=== PATIENT | female | born 1975 | race African-American/Black ===

== ENCOUNTER 2016-11-28 14:02 | Emergency (ER) | payer BC ==
[~2016-11-28] VITALS: Ht 154.9 cm; Wt 96.3 kg
[~2016-11-28 14:02] MED LIST: AMOXICILLIN500 MG PO; BENTYL20 MG PO; FLUTICASONE PRO16 GM BOTH NARES; IBUPROFEN800 MG PO; MOBIC15 MG PO; NAPROXEN500 MG PO; OMEPRAZOLE40 M1 PO; ZOFRAN ODT4 MG PO
[2016-11-28 14:29] LABS: HEMATOCRIT 40.2 % (36.0-46.0); MCHC 32.8 G/DL (30.0-36.0); MCV 85.4 FL (83-99); MEAN PLAT.VOLUME 8.7 uM^3 (9.5-12.4); PLATELET COUNT 307 K/uL (156-360); RBC DIS.WIDTH-CV 16.3 % (11.8-14.6); RBC DIS.WIDTH-SD 50.8 % (39-53); RED BLOOD COUNT 4.71 M/uL (3.80-5.20); WHITE BLOOD COUNT 8.7 K/uL (4.1-10.2)
[2016-11-28 14:39] LABS: CHLORIDE 110 mEq/L (99-109); POTASSIUM 3.8 mEq/L (3.7-5.4); SODIUM 144 mEq/L (136-147)
[2016-11-28 14:41] LABS: GLUCOSE 93 mg/dL (70-99)
[2016-11-28 14:42] LABS: ANION GAP 8 MEQ/L (2-14)
[2016-11-28 14:44] LABS: GFR ESTIMATE (CALCULATED) > 59 mL/min/
[2016-11-28 14:45] LABS: UREA NITROGEN (BUN) 9 mg/dL (9-23)
[2016-11-28 14:51] LABS: TROP-I INTERPRETATION NEGATIVE; TROPONIN-I < 0.01 ng/mL (0.0-0.30)
[2016-11-28 17:45] LABS: TROP-I INTERPRETATION NEGATIVE; TROPONIN-I < 0.01 ng/mL (0.0-0.30)
[2016-11-28 18:30] VITALS: BP 136/83
== END 2016-11-28 18:31 | disposition home or self-care (01) ==
LOC: EME 14:02
PROVIDERS: Physician Assistant
DX: R07.9 Chest pain, unspecified (principal); I10 Essential (primary) hypertension
CPT/HCPCS: 71020; 80048; 84484; 85027; 93005; 99281; 99284; Q0177

== ENCOUNTER 2018-05-19 23:13 | Inpatient (IN) | payer SELFPAY ==
[~2018-05-19] VITALS: Ht 157.5 cm; Wt 97.4 kg
[2018-05-19 23:29] LABS: HEMATOCRIT 27.7 % (36.0-46.0); HEMOGLOBIN 9.2 G/DL (11.9-15.5); MCH 29.7 PG (29.0-34.0); MCHC 33.2 G/DL (30.0-36.0); MCV 89.4 FL (83-99); PLATELET COUNT 267 K/uL (156-360); RBC DIS.WIDTH-CV 12.9 % (11.8-14.6); RBC DIS.WIDTH-SD 42.5 % (39-53); WHITE BLOOD COUNT 9.8 K/uL (4.1-10.2)
[2018-05-19 23:40] LABS: ALBUMIN 3.9 g/dL (3.2-4.8); CHLORIDE 108 mEq/L (99-109); POTASSIUM 3.5 mEq/L (3.7-5.4); SODIUM 141 mEq/L (136-147)
[2018-05-19 23:42] LABS: GLUCOSE 106 mg/dL (70-99)
[2018-05-19 23:43] LABS: TOTAL PROTEIN 6.4 g/dL (6.4-8.3)
[2018-05-19 23:44] LABS: TOTAL BILIRUBIN 0.4 mg/dL (0.0-1.0)
[2018-05-19 23:46] LABS: ALKALINE PHOSPHATASE 47 IU/L (3-129); CREATININE 0.7 mg/dL (0.6-1.3); GFR ESTIMATE (CALCULATED) > 59 mL/min/
[2018-05-19 23:47] LABS: UREA NITROGEN (BUN) 16 mg/dL (9-23)
[2018-05-19 23:48] LABS: AST (GOT) 16 IU/L (2-34)
[2018-05-19 23:49] LABS: ALT (GPT) 11 IU/L (3-49)
[2018-05-19 23:55] LABS: QUANTITATIVE HCG < 4.0 MIU/ML
[2018-05-20 00:21] LABS: APPEARANCE CLEAR ((CLEAR)); BILIRUBIN NEGATIVE; BLOOD NEGATIVE; COLOR YELLOW ((YELLOW)); GLUCOSE (STRIP) NEGATIVE; KETONES 20; LEUKOCYTES NEGATIVE; NITRITE NEGATIVE; PROTEIN (STRIP) NEGATIVE; SPECIFIC GRAVITY 1.019 (1.000-1.030); UCUL ADDED? NO; UROBILINOGEN 0.2 MG/DL (0.2-1.0)
[2018-05-20 00:45] LABS: INTER. NORMALIZED RATIO 1.1
[2018-05-20 00:46] LABS: LIPASE 39 U/L (1.0-51.0)
[2018-05-20 00:47] LABS: PTT 25.3 SEC (25-37)
[2018-05-20 02:40] LABS: HEMATOCRIT 26.5 % (36.0-46.0); HEMOGLOBIN 9.1 G/DL (11.9-15.5); MCH 30.3 PG (29.0-34.0); MCHC 34.3 G/DL (30.0-36.0); MCV 88.3 FL (83-99); NRBC (%) 4.1 /100 WBC (0-0); RBC DIS.WIDTH-SD 41.7 % (39-53); WHITE BLOOD COUNT 11.4 K/uL (4.1-10.2)
[2018-05-20 04:48] LABS: PLATELET COUNT 254 K/uL (156-360)
[2018-05-20 05:45] VITALS: BP 128/59
[2018-05-20 06:53] LABS: MCV 89.6 FL (83-99)
[2018-05-20 07:50] VITALS: BP 116/56
[2018-05-20 08:46] LABS: MAGNESIUM 1.9 mg/dl (1.3-2.7); POTASSIUM 3.8 MEQ/L (3.7-5.4)
[2018-05-20] MEDS ORDERED: OMEPRAZOLE40 M1 PO (11:31)
[2018-05-20] MEDS ORDERED: MOTRIN IB200 MG PO (11:32)
[2018-05-20 12:10] VITALS: BP 118/66
[2018-05-20 12:43] LABS: HEMOGLOBIN 8.6 G/DL (11.9-15.5); MCV 90.3 FL (83-99)
[2018-05-20 15:28] VITALS: BP 120/66
[2018-05-20 18:37] LABS: HEMATOCRIT 24.5 % (36.0-46.0); MCV 89.7 FL (83-99)
[2018-05-20 19:29] VITALS: BP 126/52
[2018-05-20 19:44] LABS: C DIFF TOXIN NEGATIVE (NEGATIVE)
[2018-05-20 23:15] VITALS: BP 125/59
[2018-05-21] VITALS (11 sets, daily range): BP systolic 102–119; BP diastolic 55–68
[2018-05-21 05:01] LABS: HEMATOCRIT 21.9 % (36.0-46.0); HEMOGLOBIN 7.1 G/DL (11.9-15.5); MCH 29.1 PG (29.0-34.0); MCHC 32.4 G/DL (30.0-36.0); MCV 89.8 FL (83-99); PLATELET COUNT 226 K/uL (156-360); RBC DIS.WIDTH-CV 12.9 % (11.8-14.6); RBC DIS.WIDTH-SD 42.7 % (39-53); RED BLOOD COUNT 2.44 M/uL (3.80-5.20); WHITE BLOOD COUNT 6.8 K/uL (4.1-10.2)
[2018-05-21 06:13] LABS: CHLORIDE 109 MEQ/L (99-109); CREATININE 0.5 MG/DL (0.6-1.3); GFR ESTIMATE (CALCULATED) > 59 mL/min/; GLUCOSE 81 mg/dL (70-99); PHOSPHORUS 2.8 mg/dL (2.5-4.9); POTASSIUM 3.6 MEQ/L (3.7-5.4); SODIUM 139 MEQ/L (136-147); UREA NITROGEN (BUN) 9 mg/dL (9-23)
[2018-05-22 04:36] VITALS: BP 120/56
[2018-05-22 05:31] LABS: HEMATOCRIT 24.6 % (36.0-46.0); MCH 28.7 PG (29.0-34.0); MCHC 32.5 G/DL (30.0-36.0); MCV 88.2 FL (83-99); PLATELET COUNT 226 K/uL (156-360); RBC DIS.WIDTH-CV 14.3 % (11.8-14.6); RBC DIS.WIDTH-SD 46.2 % (39-53); RED BLOOD COUNT 2.79 M/uL (3.80-5.20); WHITE BLOOD COUNT 7.7 K/uL (4.1-10.2)
[2018-05-22 05:41] LABS: CHLORIDE 109 MEQ/L (99-109); CREATININE 0.5 MG/DL (0.6-1.3); GFR ESTIMATE (CALCULATED) > 59 mL/min/; GLUCOSE 89 mg/dL (70-99); POTASSIUM 3.7 MEQ/L (3.7-5.4); SODIUM 140 MEQ/L (136-147); UREA NITROGEN (BUN) 10 mg/dL (9-23)
[2018-05-22 07:31] VITALS: BP 107/62
[2018-05-22] MEDS ORDERED: TYLENOL REGULA325 MG PO (10:49)
[2018-05-22 11:49] VITALS: BP 124/64
== END 2018-05-22 12:36 | disposition home or self-care (01) | DRG 378 ==
LOC: EME 23:13 → EDOF 05-20 04:38 → 4SOUTH 05-20 05:36
PROVIDERS: Emergency Medicine; Hospitalist; Internal Medicine Gastroenterology; Physician Assistant
PROC: 30233N1 Transfusion of Nonautologous Red Blood Cells into Peripheral Vein, Percutaneous Approach (ICD-10-PCS; principal; 2018-05-20)
PROC: 0DB48ZX Excision of Esophagogastric Junction, Via Natural or Artificial Opening Endoscopic, Diagnostic (ICD-10-PCS; 2018-05-21)
DX: K92.1 Melena (principal); D62 Acute posthemorrhagic anemia; R19.00 Intra-abdominal and pelvic swelling, mass and lump, unspecified site; K21.9 Gastro-esophageal reflux disease without esophagitis; T83.32XA Displacement of intrauterine contraceptive device, initial encounter; Y76.2 Prosthetic and other implants, materials and accessory obstetric and gynecological devices associated with adverse incidents; E66.9 Obesity, unspecified; Z68.39 Body mass index [BMI] 39.0-39.9, adult
CPT/HCPCS: 72197; 74177; 76856; 80048; 80053; 80069; 81003; 81025; 83690; 83735; 84132; 84702; 85014; 85018; 85027; 85610; 85730; 86850; 86900; 86901; 86920; 87177; 87493; 88305; 99281; 99285; C9113; J2250; J2405; J3010; J7030; P9016